=== PATIENT | female | born 1950 | race Caucasian/White ===

== ENCOUNTER 2019-08-19 09:50 | Outpatient (CLI) | payer MEDICARE, OTHER, SELFPAY ==
--- NOTE | 2019-08-19 10:00 | MM_ITS ---
WS: [id number] SCREENING DIGITAL MAMMOGRAM WITH CAD HISTORY: SCREENING COMPARISON: 07/28/2018, 07/08/2018, 07/07/2017 Bilateral CC and MLO views submitted. Computer aided detection analyzed. Breast composition: There are scattered areas of fibroglandular density. Bilateral stable calcificati ons in each breast. There is a new asymmetry measuring 8.3 mm posterior to the LEFT nipple at a middl e depth. Not definitely seen on the lateral projection but may be just inferior to the nipple. LEFT breast: Spot compression views (CC and MLO). True ML. Ultrasound to follow if abnormality diana reynolds. MM/[place] [id number] IMPRESSION: BI-RADS: 0-Incomplete: Need additional imaging evaluation FOLLOW UP: Need Additional Imaging
== END 2019-08-19 09:51 | disposition home or self-care (01) ==
LOC: RADSHAW 09:55
PROVIDERS: Family Provider Family Medicine; Visit Provider Family Medicine
DX: Z12.31 Encounter for screening mammogram for malignant neoplasm of breast (principal)
CPT/HCPCS: 77067

== ENCOUNTER 2019-09-06 14:54 | Outpatient (CLI) | payer MEDICARE, OTHER, SELFPAY ==
--- NOTE | 2019-09-06 15:04 | US_ITS ---
WS: [id number] ADDITIONAL VIEWS LEFT MAMMOGRAM LEFT BREAST ULTRASOUND HISTORY: LT BREAST ASYMMETRY COMPARISON: 08/19/2019, 07/08/2018, 07/07/2017 06/17/2016 LEFT MAMMOGRAM: Spot compression views and true ML. The asymmetry nearly completely resolves. There is some very mild thickening of the tissue in the jeannine tral LEFT breast just inferior to the nipple line. May be superimposed fibroglandular tissue. Ultraso und to follow. LEFT BREAST ULTRASOUND 2-D and color Doppler imaging submitted. Ultrasound is directed to 3-4 and 8-9 axes. There are no suspicious masses, shadowing or distortion. US/US breast LT limited* [id number] IMPRESSION: BI-RADS: 3-Probably Benign FOLLOW UP: 6 Month Follow-up Recommend diagnostic LEFT mammogram follow-up in 6 months and possible ultrasou nd to follow if the asymmetry persists or increases in size.
== END 2019-09-06 14:55 | disposition home or self-care (01) ==
LOC: RADSHAW 14:58
PROVIDERS: Family Provider Family Medicine; PCP Family Medicine; Visit Provider Family Medicine
DX: D64.89 Other specified anemias (principal)
CPT/HCPCS: 76642; 77065

== ENCOUNTER 2019-12-09 08:03 | Outpatient (CLI) | payer MEDICARE, OTHER, SELFPAY ==
--- NOTE | 2019-12-09 08:42 | MM_ITS ---
WS: [id number] DIAGNOSTIC LEFT DIGITAL MAMMOGRAM WITH CAD HISTORY: /6 MO F/U ABNORMAL MAMMO/ASYMMETRY COMPARISON: 09/06/2019, 08/19/2019, 07/08/2018 and 07/07/2017 Technique: CC, MLO and ML views. Spot compression LEFT CC and MLO. Breast composition: There are scattered areas of fibroglandular density. The asymmetry in the centra l LEFT breast is less apparent. Mild asymmetry persists on the MLO projection. As there is no increas e in size and this was not identified on the prior ultrasound no breast ultrasound will be be perform ed today. Continued 6 month follow-up. MM/[place] [id number] IMPRESSION: BI-RADS: 3-Probably Benign FOLLOW UP: 6 Month Follow-up Patient to return for annual mammogram in 6 months. At that time additional kae ging of the LEFT breast asymmetry will be performed.
== END 2019-12-09 08:04 | disposition home or self-care (01) ==
LOC: RADSHAW 08:08
PROVIDERS: PCP Family Medicine; Visit Provider Family Medicine
DX: R92.8 Other abnormal and inconclusive findings on diagnostic imaging of breast (principal)
CPT/HCPCS: 77065

== ENCOUNTER 2020-08-20 07:58 | Outpatient (CLI) | payer MEDICARE, OTHER, SELFPAY ==
--- NOTE | 2020-08-20 08:05 | MM_ITS ---
WS: [id number] BILATERAL DIGITAL DIAGNOSTIC MAMMOGRAM MAMMOGRAPHY WITH CAD CLINICAL INFORMATION: LT BREAST ASYMMETRY COMPARISON: December 09, 2019 and September 06, 2019 TECHNIQUE: Bilateral CC, MLO, and ML views. FINDINGS: Scattered fibroglandular densities bilaterally. The previously described asymmetry in the central lef t breast is unchanged in appearance. Vascular calcification. Punctate calcifications. Right breast is unchanged in appearance. MM/[place] [id number] IMPRESSION: BI-RADS: 2-Benign FOLLOW UP: 1 Year Follow-up Recommend return to annual screening mammography.
== END 2020-08-20 07:59 | disposition home or self-care (01) ==
LOC: RADSHAW 07:59
PROVIDERS: PCP Family Medicine; Visit Provider Family Medicine
DX: N64.89 Other specified disorders of breast (principal)
CPT/HCPCS: 77066

== ENCOUNTER 2020-10-22 13:12 | Outpatient (CLI) | payer MEDICARE, OTHER, SELFPAY ==
--- NOTE | 2020-10-22 13:21 | CT_ITS ---
WS: [id number] CT ABDOMEN PELVIS TECHNIQUE: Contrast-enhanced CT of the abdomen and pelvis with coronal and sagittal reformatted image s. CLINICAL INFORMATION: RLQ PAIN, RECTAL BLEEDING COMPARISON: CT 5 12,019 DLP: 1450.[address] scans at [facility] use at least one of these dose optimization techniques: automat ed exposure control; mA and/or kV adjustment per patient size (includes targeted exams where dose is matched to clinical indication); or iterative reconstruction. FINDINGS: Diffuse thickening of the sigmoid colon with inflammatory stranding and edema. Findings consistent wi th acute diverticulitis. No evidence of drainable abscess or fluid collection. Small amount of free f luid in the pelvis. Remainder of the colon is normal in appearance. Small amount of oral contrast is visualized in the vaginal cuff with the sigmoid colon closely opposed to the dome of the vagina suspi cious for colovaginal fistula. Sigmoid colon is closely opposed to the vagina along the left and righ t aspect of the vaginal cuff. Normal transverse colon. Normal ascending and descending colon. Cecum is normal in appearance. No brian dence of high-grade small or large bowel obstruction. Diffuse fatty infiltration of the liver. Small right hepatic cyst. Normal portal vein and splenic vei n. Small moderate esophageal hiatal hernia. Right simple renal cysts. CT/CT abdomen pelvis w con* [id number] IMPRESSION: 1. Diffuse thickening and inflammatory stranding involving the sigmoid colon c onsistent with acute diverticulitis. No evidence of drainable abscess or fluid collection. Small amount of free fluid in the pelvis. 2. Small amount of contrast is seen in the vaginal cuff suspicious for colovag inal fistula. Sigmoid colon is closely opposed to the dome of the vagina with l oss of the normal fat plane. Prior hysterectomy. 3. Colon is otherwise normal in appearance. 4. No evidence of high-grade small or large bowel 5. obstruction. 6. Diffuse fatty infiltration liver. 7. Small moderate esophageal hiatal hernia. Notified William Sharpe MD at 10/22/2020 3:46 PM.
[2020-10-22] MEDS: iohexol 300 mg/mL 100 mL Btl IV (14:05)
[2020-10-22 15:14] LABS: C Reactive Protein 17.8 mg/L (0.0-4.9)
== END 2020-10-22 13:13 | disposition home or self-care (01) ==
LOC: RAD 13:16
PROVIDERS: PCP Family Medicine; Visit Provider Family Medicine
DX: R10.31 Right lower quadrant pain (principal); K62.5 Hemorrhage of anus and rectum; K44.9 Diaphragmatic hernia without obstruction or gangrene; K76.0 Fatty (change of) liver, not elsewhere classified
CPT/HCPCS: 74177; 86140

== ENCOUNTER → 2020-12-06 11:12 | Outpatient (BNVA) | payer MEDICARE, OTHER, SELFPAY | PROVIDERS: PCP Family Medicine; Visit Provider Obstetrics & Gynecology | DX: Z12.4 Encounter for screening for malignant neoplasm of cervix (principal); K57.30 Diverticulosis of large intestine without perforation or abscess without bleeding | CPT/HCPCS: 88175 ==

== ENCOUNTER → 2021-04-11 10:48 | Outpatient (BNVA) | payer MEDICARE, OTHER, SELFPAY | PROVIDERS: PCP Family Medicine; Visit Provider Podiatrist Foot & Ankle Surgery | DX: M79.673 Pain in unspecified foot (principal) | CPT/HCPCS: 77077 ==

== ENCOUNTER 2021-05-02 07:00 | Outpatient (CLI) | payer MEDICARE, OTHER, SELFPAY ==
--- NOTE | 2021-05-02 07:15 | USCV_ITS ---
Wandy Jacob Age: 71 Gender: F : 1950 Exam Date: 05/02/2021 07:35 Ordering Phys: Oliva Rivera MD ([email or web address]) Technologist: Ramo Eli [place] [facility]: Aortic Velocity @ SMA (cm/s) 63.1 RIGHT KIDNEY LEFT KIDNEY Velocity (cm/s) Velocity (cm/s) Sys/Tsai Sys/Tsai Resistive Index Resistive Index 114.1 / 31.7 0.72 Proximal Renal Artery 105.4 / 22.4 0.79 99.3 / 26.4 0.73 Mid Renal Artery 70.2 / 17.3 0.76 62.3 / 21.1 0.66 Distal Renal Artery 85.9 / 24.6 0.71 86.6 / 20.1 0.77 Hilar 43.6 / 16.2 0.63 59.2 / 13.7 0.77 Upper Pole 39.9 / 10.1 0.75 64.4 / 11.6 0.82 Mid Pole 40.7 / 7.6 0.81 52.8 / 14.8 0.72 Lower Pole 39.9 / 10.9 0.73 1.80 Renal Aortic Ratio 1.67 Accleration Index (cm/sec2) 1471.0 Hilar 676.00 0 961.00 Upper Pole 534.00 1164.0 Mid Pole 1545.0 0 0 731.00 Lower Pole 820.00 100.4 Kidney Length (mm) 105.1 FINDINGS Comparison: none. Technically difficult study. No evidence of abdominal aortic aneurysm. There is no evidence of hemodynamically significant right renal artery stenosis. There is no evidence of hemodynamically significant left renal artery stenosis. CONCLUSIONS Technically difficult study but no renal artery stenosis seen. Dr. Felisha Jay DO (Electronically Signed) Final Date: 02 May 2021 11:38 S
--- NOTE | 2021-05-02 08:45 | USCV_ITS ---
Felicearpan Wandy Age: 71 Gender: F : 1950 Exam Date: 05/02/2021 07:52 Ordering Phys: Oliva Rivera MD ([email or web address]) Technologist: Ramo Eli Exam Location: [facility] – [place] Indication: SOB BP: 150 / 87 HR: 61 Rhythm: Sinus Technical Quality: Adequate MEASUREMENTS (Male / Female) Normal Values 2D ECHO LV Diastolic Diameter PLAX 3.1 cm 4.2 - 5.9 / 3.9 - 5.3 cm LV Systolic Diameter PLAX 1.7 cm IVS Diastolic Thickness 1.0 cm 0.6 - 1.0 / 0.6 - 0.9 cm IVS Systolic Thickness 1.2 cm LVPW Diastolic Thickness 0.9 cm 0.6 - 1.0 / 0.6 - 0.9 cm LVPW Systolic Thickness 1.0 cm LVOT Diameter 2.0 cm LV Ejection Fraction 2D Teich 77.0 % LV Ejection Fraction MOD 2C 68.4 % LV Ejection Fraction 2C AL 68.0 % LA Diameter 3.2 cm LA Width 3.6 cm LA Height 4.8 cm RA Width 4.1 cm RA Height 4.0 cm Aorta at Sinotubular Diameter 2.8 cm DOPPLER AV Peak Velocity 145.0 cm/s LVOT Peak Velocity 101.0 cm/s AV Area Cont Eq vti 2.6 cm squared AV Area Cont Eq pk 2.2 cm squared MV Area PHT 5.0 cm squared Mitral E to A Ratio 0.8 MV E' Velocity 46.5 cm/s Mitral E to MV E' Ratio 11.0 Mitral E to LV E' Lateral Ratio 9.4 Mitral E to LV E' Septal Ratio 13.5 TR Peak Velocity 190.7 cm/s TR Peak Gradient 14.5 mmHg TV Peak E Velocity 95.0 cm/s Right Atrial Pressure 3.0 mmHg Pulmonary Artery Systolic Pressu 17.5 mmHg PV Peak Velocity 62.0 cm/s FINDINGS Left Ventricle Normal left ventricular cavity size. Normal left ventricular systolic function. No regional wall motion abnormalities. Left ventricular ejection fraction is estimated at 60 %. Grade I/IV diastolic dysfunction (abnormal relaxation filling pattern), normal to mildly elevated filling pressures. Right Ventricle The right ventricle is normal in size and function. Right Atrium The right atrium is normal in size. Left Atrium The left atrium is normal in size. Mitral Valve Moderately thickened mitral valve. No mitral valve stenosis. Mild mitral valve regurgitation. Aortic Valve Moderate aortic valve calcification. No aortic valve stenosis. No aortic valve regurgitation. Tricuspid Valve Structurally normal tricuspid valve without significant stenosis or regurgitation. Pulmonary artery systolic pressure is normal. Pulmonic Valve Structurally normal pulmonic valve without significant stenosis. There is no pulmonic regurgitation. Pericardium Normal pericardium without effusion. Aorta Normal ascending aorta dimension. CONCLUSIONS 1-Normal left ventricular cavity size. Normal left ventricular systolic function. No regional wall motion abnormalities. Left ventricular ejection fraction is estimated at 60 %. Grade I/IV diastolic dysfunction (abnormal relaxation filling pattern), normal to mildly elevated filling pressures. 2-Moderately thickened mitral valve. No mitral valve stenosis. Mild mitral valve regurgitation. 3-Moderate aortic valve calcification. No aortic valve stenosis. No aortic valve regurgitation. 4-There is no pericardial effusion. 5-Pulmonary artery systolic pressure is within normal limits. 6-Right atrial pressure is around 5 mm of mercury. 7-There are no prior echocardiogram studies to compare. Oliva Rivera MD (Electronically Signed) Final Date: 06 May 2021 21:06 S
== END 2021-05-02 07:01 | disposition home or self-care (01) ==
PROVIDERS: PCP Family Medicine; Visit Provider Internal Medicine Cardiovascular Disease
DX: I34.0 Nonrheumatic mitral (valve) insufficiency (principal); R06.02 Shortness of breath; R09.89 Other specified symptoms and signs involving the circulatory and respiratory systems
CPT/HCPCS: 93306; 93975

== ENCOUNTER 2021-06-19 13:53 | Outpatient (CLI) | payer MEDICARE, OTHER, SELFPAY | END 2021-06-19 13:54 | disposition home or self-care (01) | LOC: SPT 13:54 | PROVIDERS: PCP Family Medicine; Visit Provider Podiatrist Foot & Ankle Surgery | DX: M79.673 Pain in unspecified foot (principal); M19.072 Primary osteoarthritis, left ankle and foot; L60.3 Nail dystrophy; Z46.89 Encounter for fitting and adjustment of other specified devices | CPT/HCPCS: 97760; L3030 ==

== ENCOUNTER 2021-09-26 09:41 | Outpatient (CLI) | payer MEDICARE, OTHER, SELFPAY ==
--- NOTE | 2021-09-26 09:50 | USCV_ITS ---
Wandy Jacob Age: 71 Gender: F : 1950 Exam Date: 09/26/2021 10:16 Ordering Phys: Mignon Del Toro Technologist: Taras Baker Exam Location: [facility] – [place] Indication: dizziness Risk Factors: Previous Vascular Surgery: Right Brachial BP: / Left Brachial BP: / Right Left Velocity (cm/s) Spectral Plaque Velocity (cm/s) Spectral Plaque Syst/Diast Broadening Syst/Diast Broadening 100.40/22.30 Prox CCA 89.10 / 18.30 79.90/ 16.70 Mid CCA 69.10 / 17.10 75.40/ 28.00 Distal CCA 59.00 / 16.30 76.10/ 24.10 Prox ICA 64.50 / 20.20 88.10/ 28.50 Mid ICA 78.80 / 23.80 61.80/ 18.70 Distal ICA 70.20 / 19.90 87.80 ECA 63.00 1.10 ICA/CCA 1.14 Antegrade Vertebral Antegrade 66.60/ 19.40 cm/s 85.40/ 19.70 cm/s Tri Subclavian Tri 105.4 92.40 0 FINDINGS Comparison: none available. No significant elevation of systolic or diastolic velocities. Waveforms are normal. Minimal bilateral, atherosclerosis with no elevation of velocity. Antegrade vertebral arteries. CONCLUSIONS Bilateral ICA stenosis less than 50%. Minimal carotid atherosclerosis. Dr. Felisha Jay DO (Electronically Signed) Final Date: 26 September 2021 11:01 S
== END 2021-09-26 09:42 | disposition home or self-care (01) ==
PROVIDERS: PCP Family Medicine; Visit Provider Nurse Practitioner Family
DX: I65.23 Occlusion and stenosis of bilateral carotid arteries (principal); R42 Dizziness and giddiness
CPT/HCPCS: 93880

== ENCOUNTER 2021-10-17 10:22 | Outpatient (CLI) | payer MEDICARE, OTHER, SELFPAY ==
--- NOTE | 2021-10-17 10:33 | MM_ITS ---
WS: [id number] VIEWS: MLO and CC views both breasts. 3D digital tomosynthesis is also included in this exam. Comparison made with prior exam of 08/20/2020. Findings: There was no sign of mass, architectural distortion or suspicious calcification in either breast. Sc attered fibroglandular densities MM/[place] [id number] Impression: BI-RADS: 2-Benign FOLLOW-UP: 1 Year Follow-up This mammogram was also analyzed by the Computer Aided Detection System R2 Imag e [employer].
== END 2021-10-17 10:23 | disposition home or self-care (01) ==
LOC: RADSHAW 10:23
PROVIDERS: PCP Family Medicine; Visit Provider Family Medicine
DX: Z12.31 Encounter for screening mammogram for malignant neoplasm of breast (principal)
CPT/HCPCS: 77063; 77067

== ENCOUNTER → 2022-04-04 09:08 | Outpatient (BNVA) | payer MEDICARE, OTHER, SELFPAY | PROVIDERS: PCP Family Medicine; Visit Provider Internal Medicine Cardiovascular Disease | DX: I10 Essential (primary) hypertension (principal); R06.02 Shortness of breath; E78.5 Hyperlipidemia, unspecified; E74.39 Other disorders of intestinal carbohydrate absorption | CPT/HCPCS: 99213 ==

== ENCOUNTER 2022-10-21 10:06 | Outpatient (CLI) | payer MEDICARE, SELFPAY ==
--- NOTE | 2022-10-21 10:21 | MM_ITS ---
WS: [id number] BILATERAL SCREENING DIGITAL TOMOSYNTHESIS MAMMOGRAM WITH CAD HISTORY: SCREENING COMPARISON: 10/17/2021, 12/09/2019, 08/19/2019 Bilateral CC and MLO views with tomosynthesis and synthetic mammography submitted. Computer aided det ection analyzed. Breast composition: There are scattered areas of fibroglandular density. No suspicious masses, microc alcifications or architectural distortion. Benign breast arterial calcifications and scattered puncta te calcifications. MM/[place] [id number] IMPRESSION: BI-RADS: 2-Benign FOLLOW UP: 1 Year Follow-up
== END 2022-10-21 10:07 | disposition home or self-care (01) ==
PROVIDERS: PCP Family Medicine; Visit Provider Family Medicine
DX: Z12.31 Encounter for screening mammogram for malignant neoplasm of breast (principal)
CPT/HCPCS: 77063; 77067

== ENCOUNTER → 2023-02-24 12:14 | Outpatient (BNVA) | payer MEDICARE, SELFPAY | PROVIDERS: PCP Family Medicine; Visit Provider Internal Medicine Cardiovascular Disease | DX: E74.39 Other disorders of intestinal carbohydrate absorption (principal); E78.5 Hyperlipidemia, unspecified; I10 Essential (primary) hypertension | CPT/HCPCS: 99213 ==

== ENCOUNTER 2023-11-11 12:52 | Outpatient (CLI) | payer MEDICARE, SELFPAY ==
--- NOTE | 2023-11-11 13:01 | MM_ITS ---
WS: [id number] BILATERAL 3D TOMOSYNTHESIS DIGITAL SCREENING MAMMOGRAPHY WITH CAD CLINICAL INFORMATION: SCREENING HISTORY: Screening mammogram. No current complaints. COMPARISON: 2022 TECHNIQUE: Bilateral CC and MLO views. FINDINGS: Scattered fibroglandular densities bilaterally. No suspicious focal mass, asymmetry, calcifications, or architectural distortion. No evidence of malignancy. Vascular calcification. A few incidental punc christianson calcifications. IMPRESSION: MM/[place] [id number] BI-RADS: 2-Benign FOLLOW UP: 1 Year Follow-up Recommend return to annual screening mammography.
--- NOTE | 2023-11-11 13:02 | XR_ITS ---
WS: [id number] SCREENING DEXA SCAN [employer] CLINICAL INFORMATION: POSTMENOPAUSAL COMPARISON: None. FINDINGS: The L1-L4 bone mineral density measures . This corresponds to a T score score of and Z score of . Left femoral neck bone mineral density measures 0.819 g/cm2. This corresponds to a T score of -1.5 an d Z score of 0.1. Right femoral neck bone mineral density measures 0.841 g/cm2. This corresponds to a T score -1.3of an d Z score of 0.3. Mean femoral neck bone mineral density measures 0.830 g/cm2. This corresponds to a T score of -1.4 an d Z score of 0.2. IMPRESSION: Normal bone mineralization lumbar spine. Osteopenia femoral necks. Patient's FRAX calculated 10 year probability for major osteoporotic fracture is 12.5% and osteoporot ic hip fracture is 3.0%.
== END 2023-11-11 12:53 | disposition home or self-care (01) ==
LOC: RAD 12:55
PROVIDERS: PCP Family Medicine; Visit Provider Family Medicine
DX: Z12.31 Encounter for screening mammogram for malignant neoplasm of breast (principal); Z13.820 Encounter for screening for osteoporosis; Z78.0 Asymptomatic menopausal state; R92.323 Mammographic fibroglandular density, bilateral breasts; M85.862 Other specified disorders of bone density and structure, left lower leg; M85.861 Other specified disorders of bone density and structure, right lower leg
CPT/HCPCS: 77063; 77067; 77080

== ENCOUNTER → 2024-02-23 11:00 | Outpatient (BNVA) | payer MEDICARE, SELFPAY | PROVIDERS: PCP Family Medicine; Visit Provider Internal Medicine Cardiovascular Disease | DX: I10 Essential (primary) hypertension (principal); E78.5 Hyperlipidemia, unspecified; E74.39 Other disorders of intestinal carbohydrate absorption | CPT/HCPCS: 99213 ==

== ENCOUNTER 2024-12-08 10:59 | Outpatient (CLI) | payer MEDICARE, SELFPAY ==
--- NOTE | 2024-12-08 | MM_ITS ---
WS: [id number] BILATERAL SCREENING DIGITAL TOMOSYNTHESIS MAMMOGRAM WITH CAD HISTORY: ANNUAL SCREENING COMPARISON: 11/11/2023, 10/21/2022, 10/17/2021 Bilateral CC and MLO views with tomosynthesis and synthetic mammography submitted. Computer aided detection analyzed. Breast composition: There are scattered areas of fibroglandular density. No suspicious masses, microcalcifications or architectural distortion. Benign scattered arterial calcifications. MM/MM scr BI tomosynthesis [id number] IMPRESSION: BI-RADS: 2 - Benign. FOLLOW UP: 1 Year Follow-up
== END 2024-12-08 11:00 | disposition home or self-care (01) ==
PROVIDERS: PCP Family Medicine; Visit Provider Family Medicine
DX: Z12.31 Encounter for screening mammogram for malignant neoplasm of breast (principal); R92.323 Mammographic fibroglandular density, bilateral breasts; R92.1 Mammographic calcification found on diagnostic imaging of breast
CPT/HCPCS: 77063; 77067